=== PATIENT | male | born 1980 ===

== ENCOUNTER 2016-08-29 08:43 | Emergency (ER) | payer BC ==
[2016-08-29 08:54] VITALS: RESP 18; O2SAT 98
[2016-08-29] MEDS ORDERED: Sodium Chloride 0.9% 500 ML IV ONE ×2 (09:04→10:16)
[2016-08-29] MEDS ORDERED: Sodium Chloride 0.9% 1,000 ML ONE (09:07)
[2016-08-29 09:17] LABS: BASO % 0.3 % (0.0-2.0); HEMATOCRIT 33.9 % (35.0-51.0); LYMPH # 0.4 K/uL (1.0-4.3); LYMPH % 3.7 % (20.0-40.0); MEAN CELL VOLUME 81.1 fL (80.0-94.0); MEAN CORPUSCULAR HEMOGLOBIN 27.9 pg (27.0-31.0); MEAN CORPUSCULAR HGB CONC 34.5 g/dL (33.0-37.0); MEAN PLATELET VOLUME 8.6 fL (7.2-11.7); MONO # 0.7 K/uL (0.0-0.8); MONO % 5.7 % (0.0-10.0); PLATELET COUNT 205 K/uL (130-400); RED CELL DISTRIBUTION WIDTH 12.5 % (11.5-14.5)
[2016-08-29 09:20] LABS: WHITE BLOOD COUNT 12.1 K/uL (4.8-10.8)
[2016-08-29 09:24] LABS: POTASSIUM 4.1 mmol/L (3.6-5.2)
[2016-08-29 09:26] LABS: BILIRUBIN,TOTAL 1.2 mg/dL (0.2-1.3)
[2016-08-29 09:27] LABS: ALB/GLOB RATIO 1.2 (1.0-2.1); CALCIUM 8.1 mg/dl (8.6-10.4); TOTAL PROTEIN 7.8 g/dL (6.3-8.3)
[2016-08-29 09:37] LABS: GRANULAR CAST 3 /lpf (0-1); RBC URINE 8 /hpf (0-3); URINE BACTERIA RARE (<OCC); WBC URINE 2 /hpf (0-5)
[2016-08-29 09:39] LABS: URINE COLOR YELLOW (YELLOW)
[2016-08-29 09:40] LABS: PH,URINE 5.5 (5.0-8.0); URINE BILIRUBIN NEGATIVE (NEGATIVE); URINE BLOOD MODERATE (NEGATIVE); URINE GLUCOSE (UA) 100 mg/dL (Normal); URINE KETONE NEGATIVE (NEGATIVE); URINE LEUKOCYTE ESTERASE NEGATIVE Leu/uL (Negative); URINE PROTEIN 100 mg/dL (NEGATIVE); URINE UROBILINOGEN 0.2 mg/dL (0.2-1.0)
[2016-08-29 09:43] LABS: BASOPHIL 1 % (0-2); NEUTROPHIL 85 % (50-75); TOTAL CELLS COUNTED 100
--- NOTE | 2016-08-29 09:45 | RAD ---
HISTORY: SOB COMPARISON: 07/20/2016 TECHNIQUE: Chest PA and lateral FINDINGS: LUNGS: No focal airspace opacity. PLEURA: No significant pleural effusion identified. No pneumothorax apparent. CARDIOVASCULAR: Normal. OSSEOUS STRUCTURES: No significant abnormalities. VISUALIZED UPPER ABDOMEN: Normal. OTHER FINDINGS: None. IMPRESSION: No focal airspace opacity.
--- NOTE | 2016-08-29 09:58 | C.PDOC ---
History Of Present Illness 36yo male presents to the emergency department with complaints of flu-like symptoms and cough for the past few days. Pt is also complaining of nausea and non-bloody/non-bilious vomiting. Denies diarrhea, fevers, chills, shortness of breath, chest pain or any other associated symptoms. No other complaints at this time. Time Seen by Provider: 08/29/16 08:53 Chief Complaint (Nursing): GI Problem Past Medical History Reviewed: Historical Data, Nursing Documentation, Vital Signs Vital Signs: Last Vital Signs Temp 99.3 F 08/29/16 11:51 Pulse 106 H 08/29/16 11:51 Resp 18 08/29/16 11:51 BP 146/91 H 08/29/16 11:51 Pulse Ox 98 08/29/16 11:52 - Medical History PMH: Anxiety (Klonopin), Depression (Zoloft), Diabetes, Gastritis (Tagamet), HTN , Hypercholesterolemia, Kidney Stones, Chronic Kidney Disease Denies: Hepatitis, HIV, Seizures, Sexually Transmitted Disease - [facility] Procedures DETOXIFICATION SERVICES FOR SUBSTANCE ABUSE TREATMENT (07/19/16) GROUP PSYCHOTHERAPY (07/19/16) INDIV PSYCHOTHERAPY FOR SUBSTANCE ABUSE TREATMENT, SUPPORT (07/19/16) MEDICATION MANAGEMENT (07/19/16) Family History: States: Unknown Family Hx - Social History Hx Tobacco Use: Yes (heavy smoker) Hx Alcohol Use: No Hx Substance Use: Yes - Immunization History Hx Tetanus Toxoid Vaccination: No Hx Influenza Vaccination: No Hx Pneumococcal Vaccination: No Review Of Systems Except As Marked, All Systems Reviewed And Found Negative. Constitutional: Negative for: Fever, Chills Cardiovascular: Negative for: Chest Pain Respiratory: Positive for: Cough Gastrointestinal: Positive for: Nausea, Vomiting, Abdominal Pain. Negative for : Diarrhea Musculoskeletal: Negative for: Back Pain Neurological: Negative for: Weakness, Numbness, Headache, Dizziness Physical Exam - Physical Exam Appears: Non-toxic, No Acute Distress Skin: Warm, Dry, No Rash Head: Atraumatic, Normacephalic Eye(s): bilateral: Normal Inspection, PERRL, EOMI Nose: Normal Oral Mucosa: Moist Lips: Normal Appearing Neck: Normal ROM Cardiovascular: Rhythm Regular Respiratory: Normal Breath Sounds, No Accessory Muscle Use Gastrointestinal/Abdominal: Soft, Tenderness, No Guarding, No Rebound Extremity: Normal ROM Neurological/Psych: Oriented x3, Normal Speech ED Course And Treatment - Laboratory Results Result Diagrams: 08/29/16 09:13 08/29/16 09:13 Lab Interpretation: No Acute Changes ECG: Interpreted By Me ECG Rhythm: Sinus Rhythm ECG Interpretation: No Acute Changes Rate From EC O2 Sat by Pulse Oximetry: 98 - Radiology CXR: Interpreted by Me CXR Interpretation: Yes: No Acute Disease Progress Note: Treated with zofran 4 mg IV and 2 L IVF. On re-evaluation abdomen soft, tolerating PO, in no distress. Patient advised to follow up with renal for further evaluation Reassessment Condition: Improved Medical Decision Making Medical Decision Making: Patient reports history of elevated creatine Disposition Counseled Patient/Family Regarding: Studies Performed, Diagnosis, Need For Followup, Rx Given - Disposition Referrals: [facility] [Outside] [facility] [Outside] Disposition: HOME/ ROUTINE Disposition Time: 12:00 Condition: IMPROVED Additional Instructions: Follow up with clinic for further evaluation Return to ED if any increase symptoms Prescriptions: Ondansetron ODT [Zofran ODT] 1 odt PO BID PRN #6 odt PRN Reason: Nausea/Vomiting Instructions: Dehydration (ED), Gastroenteritis (ED), Chronic Kidney Disease ( ED) Forms: Work Excuse Print Language: [place] - POA Present On Arrival: None - Clinical Impression Clinical Impression: Gastritis, CKD (chronic kidney disease) stage 4, GFR 15-29 ml/min - Scribe Statement The provider has reviewed the documentation as recorded by the Steffen Rasheed All medical record entries made by the Scribe were at my direction and personally dictated by me. I have reviewed the chart and agree that the record accurately reflects my personal performance of the history, physical exam, medical decision making, and the department course for this patient. I have also personally directed, reviewed, and agree with the discharge instructions and disposition.
[2016-08-29] MEDS ORDERED: Sodium Chloride 0.9% 1,000 ML IV ONE (10:01)
[2016-08-29 11:52] VITALS: BP 146/91; PULSE 106; TEMP 99.3
--- NOTE | 2016-08-29 18:21 | CARD ---
APPROVED REPORT EKG Measurement Heart [id number] <Conclusion> Normal sinus rhythm Right atrial enlargement T wave abnormality, consider lateral ischemia Abnormal ECG
== END 2016-08-29 12:07 | disposition home or self-care (01) ==
LOC: C.ER 08:43
DX: K29.70 Gastritis, unspecified, without bleeding (principal); I12.9 Hypertensive chronic kidney disease with stage 1 through stage 4 chronic kidney disease, or unspecified chronic kidney disease; N18.4 Chronic kidney disease, stage 4 (severe); Z72.0 Tobacco use
CPT/HCPCS: 71020; 80053; 81001; 82948; 83690; 85025; 87804; 93005; 96361; 96374; 99285; J2405; J7040